=== PATIENT | female | born 1980 | race Caucasian/White ===

== ENCOUNTER 2017-06-17 00:02 | Emergency (ER) | payer OTHER ==
[~2017-06-17 00:02] MED LIST: ACET-704 PO; NAPR500T8 PO
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
[2017-06-17] MEDS ORDERED: ONDANSETRON PF 4 MG/2 ML VIAL. IV ONE (01:00)
[2017-06-17] MEDS ORDERED: IV NORMAL SALINE 1000ML BAG 1,000 ML IV SCH (01:00)
[2017-06-17 01:05] LABS: BASO % 1 % (0-3); EOS % 1 % (0-3); HEMATOCRIT 40.3 % (36.0-47.0); HEMOGLOBIN 13.5 g/dL (12.0-15.5); LYMPH # 2.2 x10^3/uL (1.0-4.8); LYMPH % 22 % (24-48); MEAN CORPUSCULAR HEMOGLOBIN 30 pg (25-35); MEAN CORPUSCULAR HGB CONC 34 g/dL (31-37); MEAN CORPUSCULAR VOLUME 90 fL (79-100); MONO % 5 % (0-9); NEUT % 72 % (31-73); PLATELET COUNT 180 x10^3/uL (140-400); RED BLOOD COUNT 4.48 x10^6/uL (3.50-5.40); RED CELL DISTRIBUTION WIDTH 13.5 % (11.5-14.5); WHITE BLOOD COUNT 9.8 x10^3/uL (4.0-11.0)
[2017-06-17] MEDS ORDERED: IOHEXOL 300 MG/ML 75 ML VIAL IV ONE (01:15)
[2017-06-17] MEDS ORDERED: CONTRAST GIVEN MC PRN (01:15)
[2017-06-17 01:18] LABS: CALCIUM 9.1 mg/dL (8.5-10.1); CREATININE 0.6 mg/dL (0.6-1.0); GFR 113.1; POTASSIUM 4.3 mmol/L (3.5-5.1)
[2017-06-17 01:27] LABS: PROTHROMBIN TIME PATIENT 12.5 SEC (11.7-14.0)
[2017-06-17] MEDS ORDERED: IOHEXOL 300 MG/ML 75 ML VIAL ONE (01:27)
[2017-06-17] MEDS: fentaNYL PF VIAL 100 MCG/2 ML VIAL IV PRN ×3 (01:48→05:32)
[2017-06-17 03:36] LABS: BILIRUBIN,URINE NEGATIVE (NEG); GLUCOSE,URINE NEGATIVE (NEG); NITRITE,URINE NEGATIVE (NEG); PH,URINE 5.5; PROTEIN,URINE NEGATIVE (NEG-TRACE); UROBILINOGEN,URINE 0.2 mg/dL (0.2 mg/dL)
[2017-06-17 03:46] LABS: BACTERIA,URINE MODERATE /HPF (0-FEW); SQUAMOUS EPITHELIAL CELL,UR MANY /LPF
[2017-06-17 05:07] VITALS: BP 131/78
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
[2017-06-17] MEDS ORDERED: IBUP-1007 PO (05:16)
[2017-06-17] MEDS ORDERED: HYDR-971 PO (05:16)
== END 2017-06-17 05:36 | disposition home or self-care (01) ==
LOC: ER 00:02
DX: S20.212A Contusion of left front wall of thorax, initial encounter (principal); S30.1XXA Contusion of abdominal wall, initial encounter; Z88.0 Allergy status to penicillin; V89.2XXA Person injured in unspecified motor-vehicle accident, traffic, initial encounter; Y93.89 Activity, other specified; Y99.8 Other external cause status; Y92.488 Other paved roadways as the place of occurrence of the external cause
CPT/HCPCS: 36415; 71260; 74177; 80048; 81001; 85025; 85610; 85730; 87086; 96361; 96374; 96375; 96376; 99285; J2405; J3010; J7030; Q9967